=== PATIENT | female | born 1985 | race Caucasian/White ===

== ENCOUNTER → 2016-09-12 | Outpatient (REF) | LOC: ZLAB.WCH 11:00 | DX: Z01.89 Encounter for other specified special examinations (principal) ==

== ENCOUNTER → 2018-03-23 | Outpatient (REF) ==
[2018-03-23 09:43] LABS: THYROID STIMULATING HORMONE 0.895 uIU/mL (0.465-4.680)
== END ==
LOC: ZLAB.WCH 08:56
PROVIDERS: Physician Assistant
DX: Z01.89 Encounter for other specified special examinations (principal)